=== PATIENT | female | born 1980 | race Caucasian/White ===

== ENCOUNTER → 2022-03-23 10:05 | Outpatient (CLI) | payer OTHER, SELFPAY ==
--- NOTE | 2022-03-23 | DI.RAD.S_ITS ---
PROCEDURE: XR KNEE RT 3V INDICATIONS: Pain in unspecified knee/Low back pain, unspecifie TECHNIQUE: 3 views of the knee were acquired. COMPARISON: None. FINDINGS: Bones: No fractures or dislocations. No suspicious bony lesions. Mild tricompartmental degenerative joint disease. Soft tissues: No joint effusion. No suspicious soft tissue calcifications. IMPRESSION: 1. Mild degenerative joint disease. If clinical symptoms persist or clinical suspicion for internal derangement is high, MRI is suggested for further evaluation. Dictated by: Mac Ryan M.D. on 03/23/2022 at 16:47 Approved by: Mac Ryan M.D. on 03/23/2022 at 16:47
--- NOTE | 2022-03-23 | DI.RAD.S_ITS ---
PROCEDURE: XR LUMBAR SPINE 2-3V INDICATIONS: Pain in unspecified knee/Low back pain, unspecifie TECHNIQUE: 3 views of the lumbar spine were acquired. COMPARISON: None. FINDINGS: Bones: 5 [id number] vertebrae are present. Endplate degenerative changes at L3-4 and L4-5 are mild. There is facet arthrosis with grade 1 anterolisthesis at L5-S1. There is normal bony alignment. No vertebral body compression fractures. No suspicious bony lesions. Soft tissues: Overlying bowel gas pattern is normal. No suspicious soft tissue calcifications. IMPRESSION: 1. 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 2. Mild degenerative changes. 3. No acute abnormality. Dictated by: Meka Tovar M.D. on 03/23/2022 at 13:22 Approved by: Meka Tovar M.D. on 03/23/2022 at 13:25
== END ==
PROVIDERS: PCP Nurse Practitioner; Referring Provider Internal Medicine Cardiovascular Disease; Visit Provider Internal Medicine Cardiovascular Disease
DX: M17.11 Unilateral primary osteoarthritis, right knee (principal); M47.817 Spondylosis without myelopathy or radiculopathy, lumbosacral region; M47.816 Spondylosis without myelopathy or radiculopathy, lumbar region; M43.17 Spondylolisthesis, lumbosacral region; M25.561 Pain in right knee; M54.50 Low back pain, unspecified
CPT/HCPCS: 72100; 73562